=== PATIENT | female | born 1960 ===

== ENCOUNTER 2018-12-23 06:12 | Day surgery (SDC) | payer MEDICARE, OTHER ==
[2018-12-23 07:03] VITALS: BMI 38.4
[2018-12-23] MEDS ORDERED: Lactated Ringer's 1,000 ML IV ONE (07:15)
[2018-12-23] MEDS ORDERED: Lidocaine 1% 5ml Abboject ONE (07:22)
[2018-12-23] MEDS ORDERED: Propofol 10 mg/ml Inj (20 ML) ONE (07:22)
[2018-12-23] MEDS ORDERED: Midazolam 2 MG/2 ML VIAL ONE (07:22)
[2018-12-23] MEDS ORDERED: Iohexol 300 10 ML ONE (07:28)
[2018-12-23] MEDS ORDERED: Lidocaine 1% Inj (20ml) ONE (07:29)
--- NOTE | 2018-12-23 07:41 | CP.SDSHP ---
Same Day Surgery H & P - History Proposed Procedure: Bilateral sacroiliac joint injection Pre-Op Diagnosis: Bilateral sacroiliitis - Previous Medical/Surgical History Endocrine/Metabolic: Diabetes Pain: 8.Very Severe - Allergies Allergies: Allergies aztreonam [From Azactam] Allergy (Intermediate, Verified 12/23/18 06:38) ITCHING ceftriaxone sodium [From Rocephin] Allergy (Intermediate, Verified 12/23/18 06:38) ITCHING hydromorphone [From Dilaudid] Allergy (Intermediate, Verified 12/23/18 06:38) ITCHING - Physical Exam Vital Signs: Vital Signs 12/23/18 12/23/18 06:47 06:54 Temperature 98.3 F Pulse Rate 66 66 Respiratory 18 Rate Blood Pressure 112/73 O2 Sat by Pulse 98 Oximetry Mental Status: Alert & Oriented x3 Neuro: WNL Heart: WNL Lungs: WNL GI: WNL - Impression Impression: Bilateral sacroiliitis Pt. Evaluated Today:Candidate for Anesthesia & Procedure: Yes Short Stay Discharge - Short Stay Discharge Admitting Diagnosis/Reason for Visit: M46.1 Disposition: HOME/ ROUTINE
[2018-12-23] MEDS: MethylPREDNISolone Depo 40 mg/ml Inj ONE ×2 (08:02→08:04)
[2018-12-23] MEDS: Bupivacaine HCl 0.5% PF (10 ml) Inj ONE ×2 (08:02→08:04)
[2018-12-23] MEDS: HYDROmorphone 0.5 mg/0.5 ml ISec IVP PRN ×3 (08:10→09:00)
[2018-12-23] MEDS ORDERED: Lactated Ringer's 1,000 ML IV SCH (08:15)
[2018-12-23 10:23] VITALS: RESP 18; TEMP 98.8
[2018-12-23] MEDS ORDERED: Oxycodone/Acetaminophen 5/325 mg Tab PO STA (11:29)
[2018-12-23] MEDS ORDERED: Oxycodone/Acetaminophen 5/325 mg Tab PO ONE (11:47)
[2018-12-23 12:51] VITALS: BP 120/59; PULSE 65; O2SAT 99
--- NOTE | 2018-12-23 14:39 | OP ---
PROCEDURE DATE: 12/23/2018 PREOPERATIVE DIAGNOSIS: Bilateral sacroiliitis. POSTOPERATIVE DIAGNOSIS: Bilateral sacroiliitis. PROCEDURE: Bilateral sacroiliac joint steroid injection. SURGEON: Andrews Easley MD TYPE OF ANESTHESIA: Monitored anesthesia care. ANESTHESIA ADMINISTERED BY: Vimal Bone MD COMPLICATIONS: None. SPECIMEN: None. DESCRIPTION OF PROCEDURE: Procedure is as follows: After we had discussion of the procedure with the patient including its risks, benefits, alternatives, outcome data, and possibility of no effect or increased pain, the patient consented to the procedure. The back was prepped and draped in the usual sterile fashion, and a sterile technique was adhered to during the entire procedure. The sacroiliac joint was first visualized on the anteroposterior view. The procedure was first performed on the right side. The fluoroscopy was turned slightly oblique to the right at approximately 5 degrees to differentiate between the posterior and the anterior opening. The target was inferior pole of the posterior opening. The skin overlying this area was then infiltrated with 1% lidocaine using a 25-needle. A 22-gauge 3.5-inch spinal needle was then incrementally advanced under fluoroscopic guidance until the tip of needle walked into the joint capsule. After appropriate placement of the needle, approximately 0.5 mL of Isovue contrast was injected showing appropriate spread up the joint capsule. At this point, approximately 3 mL of 0.25% Marcaine and Depo-Medrol mixture was injected. The needle was then removed. The procedure was attempted in the same way on the left side. However, the contrast spread of the needle was walked into the joint capsule was then able to demonstrate spread up the joint capsule. At this point, the decision was then made to distribute the mixture of medications periarticularly. Approximately three locations were accessed immediately medial to the joint line at 1-cm intervals from the inferior pole up to the top of the sacroiliac joint. At the end of the procedure, the needles were removed and the patient's back was cleaned and dry bandage was applied. The patient was then transferred to recovery area in good conditions without any signs of WELDING MACHINE OPERATOR/TENDER toxicity or any neurological deficit. She will be followed up in our office in approximately two to four weeks. Andrews Easley MD [facility] # [id number]
--- NOTE | 2018-12-24 13:50 | RAD ---
Date of service: 12/23/2018 PROCEDURE: Fluoroscopy up to 1 hr. HISTORY: PAIN MANAGEMENT COMPARISON: None TECHNIQUE: Total fluoroscopic time (continuous mode) utilized during the procedure 47.2 seconds. Submitted images from the current procedure: 2.0 FINDINGS: Total exam DLP: 20.00 (mGy). IMPRESSION: Less than 1 hr fluoroscopic assistance provided during performance of the procedure.
== END 2018-12-23 12:51 | disposition home or self-care (01) ==
LOC: H.OPSURG 06:12
PROVIDERS: ATTEND Anesthesiology
DX: M46.1 Sacroiliitis, not elsewhere classified (principal); M19.90 Unspecified osteoarthritis, unspecified site; I25.10 Atherosclerotic heart disease of native coronary artery without angina pectoris; E11.9 Type 2 diabetes mellitus without complications; E78.5 Hyperlipidemia, unspecified; I10 Essential (primary) hypertension; E03.9 Hypothyroidism, unspecified; K76.0 Fatty (change of) liver, not elsewhere classified
CPT/HCPCS: 82948; G0260; J1030; J1170; J2250; J2405; J2704; J3010; J7120; Q9967